=== PATIENT | male | born 1960 | race Two or more races ===

== ENCOUNTER → 2017-12-20 | Outpatient (CLI) | payer OTHER ==
[~2017-12-20] MED LIST: CHOL100015 PO; DOCU-180 PO; FERR325C PO
== END | disposition home or self-care (01) ==
LOC: RAD 17:13
PROVIDERS: ATTEND Family Medicine
DX: M50.323 Other cervical disc degeneration at C6-C7 level (principal)
CPT/HCPCS: 72050